=== PATIENT | female | born 1960 | race Caucasian/White ===

== ENCOUNTER 2021-12-31 18:45 | Emergency (ER) | payer MEDICARE ==
[~2021-12-31] VITALS: Ht 152.4 cm; Wt 41.8 kg
[2021-12-31] MEDS ORDERED: BUSP10TA23 PO (19:02)
[2021-12-31] MEDS ORDERED: RISP1TAB48 PO (19:02)
[2021-12-31] MEDS ORDERED: BENZ1TAB96 PO (19:02)
[2021-12-31] MEDS ORDERED: OMEP20 PO (19:02)
[2021-12-31] MEDS ORDERED: KETAMINE HCL 50 MG/ML 10 ML VIAL IVP ONE (19:30)
[2021-12-31] MEDS ORDERED: BUPIVACAINE HCL/PF 0.5% 30 ML VIAL ONE (20:12)
[2021-12-31] MEDS ORDERED: BUPIVACAINE 0.25%/EPI 1:200,000/PF 10 ML VIAL ONE (20:12)
[2021-12-31] MEDS ORDERED: BUPIVACAINE HCL/PF 0.5% 10 ML VIAL SQ ONE (20:15)
[2021-12-31] MEDS ORDERED: BUPIVACAINE HCL/PF 0.5% 30 ML VIAL SQ ONE (20:30)
[2021-12-31 20:50] VITALS: BP 123/76
== END 2021-12-31 21:10 | disposition home or self-care (01) ==
LOC: EMS 18:45
DX: S02.5XXA Fracture of tooth (traumatic), initial encounter for closed fracture (principal); S03.2XXA Dislocation of tooth, initial encounter; G80.9 Cerebral palsy, unspecified; F72 Severe intellectual disabilities; W19.XXXA Unspecified fall, initial encounter; Y93.89 Activity, other specified; Y92.89 Other specified places as the place of occurrence of the external cause; Y99.8 Other external cause status
CPT/HCPCS: 99285; 41899; 99152; J3490 ×3

== ENCOUNTER 2023-08-04 06:34 | Day surgery (SDC) | payer OTHER, MEDICARE ==
[~2023-08-04] VITALS: Ht 154.9 cm; Wt 40.9 kg
[~2023-08-04 06:34] MED LIST: BENZ1TAB84 PO; BUSP10TA23 PO; OMEP20 PO; RISP1TAB48 PO
[2023-08-04] MEDS ORDERED: AMPICILLIN SODIUM 2 GM/NS 100 ML IV ONE (07:11)
[2023-08-04] MEDS ORDERED: RINGERS SOLUTION,LACTATED 1,000 ML IV ONE (07:36)
[2023-08-04 08:04] LABS: BASOPHILS % (AUTO) 0.8 % (0.0-2.0); EOSINOPHILS % (AUTO) 0.6 % (1.0-6.0); HEMATOCRIT 37.8 % (36-46); HEMOGLOBIN 12.5 g/dL (12.0-16.0); LYMPHOCYTES # (AUTO) 1.5 K/uL (1.0-4.8); MEAN CORPUSCULAR HEMOGLOBIN 30.4 pg (26.0-34.0); MEAN CORPUSCULAR HGB CONC 33.2 G/dL (31.0-37.0); MEAN CORPUSCULAR VOLUME 92 fL (80-100); MONOCYTES # (AUTO) 0.7 K/uL (0.1-1.0); MONOCYTES % (AUTO) 8.6 % (2.0-9.0); NEUTROPHILS # (AUTO) 6.3 K/uL (1.8-7.7); PLATELET COUNT (AUTO) 268 K/uL (150-450); RED BLOOD CELL COUNT(AUTO) 4.12 MIL/uL (4.00-5.20); RED CELL DISTRIBUTION WIDTH 13.9 % (11.5-14.5); WHITE BLOOD COUNT (AUTO) 8.6 K/uL (4.5-11.0)
[2023-08-04 08:16] LABS: ANION GAP 10 mmol/L (8-16); CALCIUM, TOTAL 8.9 mg/dL (8.8-10.5); CARBON DIOXIDE 28 mmol/L (22-29); CHLORIDE 104 mmol/L (98-107); CREATININE 0.52 mg/dL (0.60-1.30); GLOMERULAR FILTR. RATE CALC > 60 mL/min (>60); GLUCOSE,RANDOM 103 mg/dL (70-110); POTASSIUM 4.3 mmol/L (3.5-5.1); SODIUM SERUM 142 mmol/L (136-145); UREA NITROGEN, BLOOD 19 mg/dL (7-18)
[2023-08-04 08:18] LABS: PROTHROMBIN TIME 10.8 SEC (9.4-11.6)
[2023-08-04 08:23] LABS: ALANINE AMINOTRANSFERASE 26 U/L (12-78); ALBUMIN 3.5 g/dL (3.4-5.0); ALKALINE PHOSPHATASE 92 U/L (46-116); ASPARTATE AMINOTRANSFERASE 22 U/L (15-37); BILIRUBIN,TOTAL 0.4 mg/dL (0.1-1.0)
[2023-08-04] MEDS: RINGERS SOLUTION,LACTATED 1,000 ML IV ONE (10:25)
[2023-08-04] MEDS ORDERED: ONDANSETRON HCL 4 MG/2 ML VIAL IVP ONE (12:00)
[2023-08-04] MEDS ORDERED: PROPOFOL 1% 20 ML VIAL IVP ONE (12:00)
[2023-08-04] MEDS ORDERED: DEXAMETHASONE SOD PHOS 4 MG/ML VIAL IVP ONE (12:00)
[2023-08-04] MEDS ORDERED: LIDOCAINE/PF 2% 5 ML VIAL IM ONE (12:00)
[2023-08-04] MEDS ORDERED: ROCURONIUM BROMIDE 10 MG/ML 5 ML VIAL IVP ONE (12:00)
[2023-08-04] MEDS ORDERED: SUGAMMADEX SODIUM 200 MG/2 ML VIAL IVP ONE (12:00)
== END 2023-08-04 12:50 | disposition home or self-care (01) ==
LOC: SURGERY 06:34
PROVIDERS: ATTEND Dentist General Practice
DX: K05.30 Chronic periodontitis, unspecified (principal); K02.9 Dental caries, unspecified; K03.6 Deposits [accretions] on teeth; Z79.899 Other long term (current) drug therapy; Z98.890 Other specified postprocedural states; K21.9 Gastro-esophageal reflux disease without esophagitis; F41.9 Anxiety disorder, unspecified; G80.9 Cerebral palsy, unspecified; Z79.01 Long term (current) use of anticoagulants
CPT/HCPCS: 41899; 71045; 80053; 85025; 85610; 85730; 36415; 93005; J0290; J2704; J1100; J3490 ×2; J2405; Q9967; J7120